=== PATIENT | male | born 1955 | race Caucasian/White ===

== ENCOUNTER 2021-04-24 13:30 | Emergency (ER) | payer MEDICARE ==
[~2021-04-24] VITALS: Ht 185.4 cm; Wt 108.9 kg
[2021-04-24 14:31] LABS: BASOPHILS % (AUTO) 0.1 % (0.0-5.0); EOSINOPHILS % (AUTO) 0.1 % (0.0-8.0); HEMATOCRIT 38.5 % (42-54); LYMPHOCYTES % (AUTO) 3.1 % (21.0-51.0); MEAN CORPUSCULAR HEMOGLOBIN 32.4 pg (27.0-33.0); MEAN CORPUSCULAR HGB CONC 33.8 g/dL (32.0-36.0); MONOCYTES % (AUTO) 5.6 % (3.0-13.0); NEUTROPHILS % (AUTO) 90.5 % (40.0-77.0); PLATELET COUNT (AUTO) 160 K/uL (130-400); RED BLOOD CELL COUNT(AUTO) 4.01 MIL/uL (4.50-6.20); RED CELL DISTRIBUTION WIDTH 11.8 % (11.0-15.5); WHITE BLOOD COUNT (AUTO) 10.8 K/uL (4.8-10.8)
[2021-04-24] MEDS ORDERED: ACETAMINOPHEN 500 MG TABLET ONE (14:48)
[2021-04-24 15:18] LABS: CREATININE 1.1 mg/dL (0.5-1.5); POTASSIUM 3.4 mmol/L (3.5-5.1)
[2021-04-24 15:23] LABS: ALBUMIN 3.6 g/dL (3.5-5.0); BILIRUBIN,TOTAL 0.9 mg/dL (0.2-1.0); TOTAL PROTEIN, SERUM 6.6 g/dL (6.0-8.3)
[2021-04-24] MEDS ORDERED: PREDNISONE 20 MG TABLET PO ONE (16:00)
[2021-04-24] MEDS ORDERED: IBUPROFEN 600 MG TABLET PO ONE (16:00)
[2021-04-24] MEDS ORDERED: ALBUTEROL 0.083% 2.5 MG/3 ML INH IH ONE ×2 (16:00→16:12)
[2021-04-24] MEDS ORDERED: ALBU8.5H8 IH (16:12)
[2021-04-24] MEDS ORDERED: ONDA4TAB10 PO (16:12)
[2021-04-24] MEDS ORDERED: AZIT250T9 PO (16:12)
[2021-04-24] MEDS ORDERED: PRED20TA3 PO (16:12)
[2021-04-24] MEDS ORDERED: BENZ-39 PO (16:12)
[2021-04-24 16:46] VITALS: BP 124/76
== END 2021-04-24 17:09 | disposition home or self-care (01) ==
LOC: EDH 13:30
DX: J11.1 Influenza due to unidentified influenza virus with other respiratory manifestations (principal); J40 Bronchitis, not specified as acute or chronic; Z20.822 Contact with and (suspected) exposure to COVID-19; E78.00 Pure hypercholesterolemia, unspecified; I10 Essential (primary) hypertension; I48.91 Unspecified atrial fibrillation; Z79.1 Long term (current) use of non-steroidal anti-inflammatories (NSAID); Z79.52 Long term (current) use of systemic steroids; Z79.899 Other long term (current) drug therapy
CPT/HCPCS: 36415; 71045; 80053; 83605; 84484; 85025; 87040 ×2; 87635; 87804 ×2; 93005; 94640; 99285; C9803